=== PATIENT | female | born 1970 | race Caucasian/White ===

== ENCOUNTER 2017-04-21 12:54 | Outpatient (CLI) | payer BC ==
[2017-04-21 14:42] LABS: Hematocrit 46.7 % (36.0-47.0); Red Blood Cell (RBC) Count 4.61 mill/uL (4.20-5.40); White Blood Cell (WBC) Count 6.4 thou/uL (4.8-10.8)
[2017-04-21 15:16] LABS: Anion Gap 13 mmol/L (10-20); BUN (Urea Nitrogen) 10 mg/dL (7.0-18.7); Calc. Creatinine Clearance 0 mL/min (70-130); Calcium 9.6 mg/dL (7.8-10.44); Carbon Dioxide 24 mmol/L (22-29); Chloride 108 mmol/L (98-107); Estimated GFR-MDRD Greater than 90
--- NOTE | 2017-05-06 13:30 | EKG ---
Test Reason : Blood Pressure : / mmHG Vent. Rate : 067 BPM Atrial Rate : 067 BPM P-R Int : 152 ms QRS Dur : 080 ms QT Int : 434 ms P-R-T Axes : 060 062 049 degrees QTc Int : 458 ms Normal sinus rhythm Cannot rule out Anterior infarct , age undetermined Abnormal ECG No previous ECGs available Confirmed by LALITO MILLAN MD ([id number] on 05/06/2017 1:30:15 PM Referred By: JOSELINE Confirmed By:LALITO MILLAN MD
== END 2017-04-21 12:55 | disposition home or self-care (01) ==
LOC: LABBT 12:54
PROVIDERS: ATTEND Neurological Surgery
DX: Z01.818 Encounter for other preprocedural examination (principal); M54.16 Radiculopathy, lumbar region
CPT/HCPCS: 80048; 85027; 93005; 93010

== ENCOUNTER 2017-04-27 07:00 | Outpatient (CLI) | payer BC | END 2017-04-27 07:01 | disposition home or self-care (01) | LOC: BICMRI 07:00 | PROVIDERS: ATTEND Neurological Surgery | DX: M51.17 Intervertebral disc disorders with radiculopathy, lumbosacral region (principal) | CPT/HCPCS: 72148 ==

== ENCOUNTER 2017-05-04 05:40 | Observation (INO) | payer BC ==
[2017-04-21 13:20] VITALS: BMI 32.3
[2017-05-04] MEDS ORDERED: Midazolam HCl 2 mg/2 ml Vial ONE ×2 (06:15→09:12)
[2017-05-04] MEDS ORDERED: Fentanyl 100 MCG/2 ML VIAL ONE ×2 (06:15→09:28)
[2017-05-04] MEDS ORDERED: Fentanyl 250 MCG/5 ML VIAL ONE (06:15)
[2017-05-04] MEDS ORDERED: Sodium Chloride 0.9% 10 ML ONE (06:30)
[2017-05-04] MEDS ORDERED: CEFAZOLIN/Water 2 GM/20 ML SYRINGE ONE (06:49)
[2017-05-04] MEDS ORDERED: HYDROmorphone 2 MG/ML VIAL SLOW IVP PRN (07:21)
[2017-05-04] MEDS ORDERED: Promethazine HCl 25 MG/ML VIAL SLOW IVP PRN (07:21)
[2017-05-04] MEDS ORDERED: Meperidine HCl/PF 25 MG/ML VIAL SLOW IVP PRN (07:21)
[2017-05-04] MEDS ORDERED: HYDROmorphone 0.5 MG/0.5 ML SYRINGE ONE ×2 (09:10→09:12)
[2017-05-04] MEDS ORDERED: Ondansetron HCl/PF 4 MG/2 ML Vial IVP PRN (09:19)
[2017-05-04] MEDS ORDERED: Promethazine HCl 25 MG/ML VIAL IM PRN (09:19)
[2017-05-04] MEDS ORDERED: diphenhydrAMINE 25 MG CAP PO PRN (09:19)
[2017-05-04] MEDS ORDERED: Zolpidem Tartrate 5 MG TAB PO PRN (09:19)
[2017-05-04] MEDS ORDERED: Naloxone HCl 0.4 mg/ml Vial IV PRN (09:19)
[2017-05-04] MEDS ORDERED: HYDROmorphone 10 mg/100 ml CADD IVPB PRN (09:19)
[2017-05-04] MEDS ORDERED: diphenhydrAMINE 50 MG/ML VIAL IVP PRN (09:19)
[2017-05-04] MEDS ORDERED: diphenhydrAMINE 50 MG/ML VIAL IM PRN (09:19)
[2017-05-04] MEDS ORDERED: Communication Order-Pharmacy FS SCH (09:30)
[2017-05-04] MEDS ORDERED: Ketorolac Tromethamine 30 MG/ML VIAL ONE (09:55)
--- NOTE | 2017-05-04 12:15 | OP ---
DATE OF PROCEDURE: 05/04/2017 SURGEON: Braeden Jauregui M.D. SKULL CHOPPER: Aide Becerra PROCEDURES: Left L5-S1 laminectomy, facetectomy, and foraminotomy, interbody arthrodesis, intraverte bral biomechanical device, local morselized autograft, demineralized bone matrix, posterior lateral a rthrodesis, and pedicle screw instrumentation, L5-S1. PROCEDURE IN DETAIL: The patient was brought into the operating room, intubated. She was rolled in the prone position on gel-filled chest rolls. Incision made exposing L5 and S1 and our level was con firmed by x-ray. We performed a left L5-S1 laminectomy, facetectomy, and foraminotomy incising inter vertebral disk and completely decompressed the left L5 and left S1 nerve roots. The disc itself was completely debrided and the bony endplates decorticated for the purpose of arthrodesis. An appropria tely sized intravertebral biomechanical PEEK device was brought into the field, filled with demineral ized bone matrix and local morselized autograft, and tapped into place securely at L5-S1. Next, pedi fred screws were placed at left L5 and left S1 using lateral fluoroscopic guidance and the positioning was confirmed with rotational x-ray. A ok was secured between the screws, connected by nuts which were final tightened. The wound was then extensively irrigated, immaculate hemostasis was secured. A combination of demineralized bone matrix and local morselized autograft was laid over the laminar p osterolateral surfaces on the right for the purpose of arthrodesis. Vancomycin powder was applied an d the wound was then closed in anatomic layers.
[2017-05-04] MEDS ORDERED: Dexamethasone 20 MG/5 ML VIAL ONE (13:37)
[2017-05-04] MEDS ORDERED: Lidocaine 1% PF 5 ML VIAL ONE (13:37)
[2017-05-04] MEDS ORDERED: PROPOFOL 200 MG/20 ML VIAL ONE (13:37)
[2017-05-04] MEDS ORDERED: Ondansetron HCl/PF 4 MG/2 ML Vial ONE (13:37)
[2017-05-04] MEDS ORDERED: Glycopyrrolate 0.2 MG/ML 5 ML SYRINGE ONE (13:37)
[2017-05-04] MEDS ORDERED: ePHEDrine/0.9% NaCl/PF SYRINGE 50 mg/10 ml ONE (13:37)
--- NOTE | 2017-05-04 13:37 | PDOC.PN ---
- Subjective Encounter Start Date: 05/04/17 Encounter Start Time: 13:00 Subjective: c/o pain at operated site -: no chest pain or palp or sob - Objective MAR Reviewed: Yes Vital Signs & Weight: Vital Signs (12 hours) Temp Pulse Resp BP Pulse Ox 05/04/17 11:20 97.5 F L 92 18 120/68 94 L 05/04/17 11:10 97.5 F L 92 18 05/04/17 09:20 97.5 F L 79 16 124/91 H 94 L Weight Weight 177 lb I&O: 05/03/17 05/04/17 05/05/17 06:59 06:59 06:59 Intake Total 0 Balance 0 Phys Exam - Physical Examination HEENT: PERRLA, moist MMs Neck: no JVD, supple Respiratory: no wheezing, no rales Cardiovascular: RRR, no significant murmur Gastrointestinal: soft, non-tender, positive bowel sounds Musculoskeletal: no edema, pulses present Neurological: non-focal, moves all 4 limbs Psychiatric: A&O x 3 Dx/Plan (1) S/P lumbar spine operation Code(s): Z98.890 - OTHER SPECIFIED POSTPROCEDURAL STATES Status: Acute Comment: 05/04/2017 (2) HTN (hypertension) Code(s): I10 - ESSENTIAL (PRIMARY) HYPERTENSION Status: Chronic Qualifiers: Hypertension type: essential hypertension Qualified Code(s): I10 - Essential (primary) hypertension (3) H/O systemic lupus erythematosus (SLE) Code(s): Z87.39 - PERSONAL HISTORY OF DISEASES OF THE MS SYS AND CONN TISS Status: Chronic (4) Bipolar 1 disorder Code(s): F31.9 - BIPOLAR DISORDER, UNSPECIFIED Status: Chronic - 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 Review of Systems - Medications/Allergies Allergies/Adverse Reactions: Allergies Allergy/AdvReac Type Severity Reaction Status Date / Time shellfish derived Allergy Severe HIVES, Verified 04/21/17 13:11 THROAT SWELLING duloxetine [From Cymbalta] Allergy Intermediate HALLUCINATI Verified 04/21/17 13 :11 ONS phenytoin [From Dilantin] Allergy Intermediate Verified 04/21/17 13:11 Medications: Current Medications Diphenhydramine HCl (Benadryl) 25 mg IVP Q3H PRN PRN Reason: Itching Diphenhydramine HCl (Benadryl) 25 mg PO Q3H PRN PRN Reason: Itching Diphenhydramine HCl (Benadryl) 25 mg IM Q3H PRN PRN Reason: Itching Hydromorphone HCl (Dilaudid Cadd) 0 mg IVPB INF PRN PRN Reason: Pain Ketorolac Tromethamine (Toradol) 30 mg IVP 0400,1000,1600,2200 [facility] Stop: 05/06/17 16:01 Miscellaneous Information (Communication Order-Pharmacy) 1 each FS [facility] Stop: 05/04/17 23:00 Naloxone HCl (Narcan) 0.2 mg IV Q5MIN PRN PRN Reason: Opiate Reversal Ondansetron HCl (Zofran) 4 mg IVP Q6H PRN PRN Reason: Nausea/Vomiting Promethazine HCl (Phenergan) 6.25 mg IM Q4H PRN PRN Reason: Nausea/Vomiting
[2017-05-04] MEDS ORDERED: ALPRAZolam 1 MG TAB PO PRN (14:57)
[2017-05-04] MEDS: CEFAZOLIN/Water 2 GM/20 ML SYRINGE SLOW IVP SCH ×2 (16:23→23:45)
[2017-05-04] MEDS: Ketorolac Tromethamine 30 MG/ML VIAL IVP SCH ×2 (16:30→21:40)
[2017-05-04] MEDS: Gabapentin 400 MG CAP PO SCH ×2 (17:38→21:42)
[2017-05-04] MEDS: Hydroxychloroquine Sulfate 200 MG TAB PO SCH (21:42)
[2017-05-05] MEDS: Ketorolac Tromethamine 30 MG/ML VIAL IVP SCH (03:39)
[2017-05-05 08:12] LABS: #Eosinphils 0.1 thou/uL (0.0-0.7); #Lymphocytes 3.3 thou/uL (1.20-3.40); #Neutrophils 4.5 thou/uL (1.40-6.50); %Basophils 0.3 % (0.0-1.0); %Eosinophils 0.8 % (0.0-10.0); %Lymphocytes 36.6 % (21.0-51.0); %Monocytes 11.5 % (0.0-10.0); %Neutrophils 50.8 % (42.0-75.0); Hemoglobin 13.2 g/dL (12.0-16.0); Mean Corpuscular HGB CONC 33.2 g/dL (32.0-36.0); Mean Corpuscular Hemoglobin 33.7 pg (27.0-31.0); Mean Platelet Volume 8.1 fL (7.4-10.4); Platelet Count 153 thou/uL (130-400); RBC Distribution Width 11.7 % (11.5-14.5); Red Blood Cell (RBC) Count 3.92 mill/uL (4.20-5.40); White Blood Cell (WBC) Count 8.9 thou/uL (4.8-10.8)
[2017-05-05] MEDS ORDERED: Gabapentin 400 MG CAP PO SCH (09:00)
[2017-05-05] MEDS ORDERED: Aripiprazole 10 MG TAB PO SCH (09:00)
[2017-05-05 09:04] VITALS: BP 124/79; TEMP 98
[2017-05-05] MEDS: Hydroxychloroquine Sulfate 200 MG TAB PO SCH (10:00)
--- NOTE | 2017-05-05 11:23 | PDOC.PN ---
- Subjective Encounter Start Date: 05/05/17 Encounter Start Time: 08:00 Subjective: is amb in room, feels good - Objective MAR Reviewed: Yes Vital Signs & Weight: Vital Signs (12 hours) Temp Pulse Resp BP Pulse Ox 05/05/17 09:03 98 F 78 16 124/79 95 05/05/17 04:00 97.6 F 95 16 99/64 92 L 05/05/17 00:00 98.0 F 67 19 108/72 93 L Weight Weight 177 lb I&O: 05/04/17 05/05/17 05/06/17 06:59 06:59 06:59 Intake Total 400 Output Total 0 Balance 400 Result Diagrams: 05/05/17 08:02 Phys Exam - Physical Examination HEENT: PERRLA, moist MMs Neck: no JVD, supple Respiratory: no wheezing, no rales Cardiovascular: RRR, no significant murmur Gastrointestinal: soft, non-tender, positive bowel sounds Musculoskeletal: no edema, pulses present Neurological: non-focal, moves all 4 limbs Psychiatric: A&O x 3 Dx/Plan (1) S/P lumbar spine operation Code(s): Z98.890 - OTHER SPECIFIED POSTPROCEDURAL STATES Status: Acute Comment: 05/04/2017 (2) HTN (hypertension) Code(s): I10 - ESSENTIAL (PRIMARY) HYPERTENSION Status: Chronic Qualifiers: Hypertension type: essential hypertension Qualified Code(s): I10 - Essential (primary) hypertension (3) H/O systemic lupus erythematosus (SLE) Code(s): Z87.39 - PERSONAL HISTORY OF DISEASES OF THE MS SYS AND CONN TISS Status: Chronic (4) Bipolar 1 disorder Code(s): F31.9 - BIPOLAR DISORDER, UNSPECIFIED Status: Chronic - Plan dc plan per nsx advice -: 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 Review of Systems - Medications/Allergies Allergies/Adverse Reactions: Allergies Allergy/AdvReac Type Severity Reaction Status Date / Time shellfish derived Allergy Severe HIVES, Verified 04/21/17 13:11 THROAT SWELLING duloxetine [From Cymbalta] Allergy Intermediate HALLUCINATI Verified 04/21/17 13 :11 ONS phenytoin [From Dilantin] Allergy Intermediate Verified 04/21/17 13:11 Medications: Current Medications Alprazolam (Xanax) 1 mg PO TIDPRN PRN PRN Reason: Anxiety Aripiprazole (Abilify) 10 mg PO DAILY [facility] Last Admin: 05/05/17 10:02 Dose: 10 mg Diphenhydramine HCl (Benadryl) 25 mg IVP Q3H PRN PRN Reason: Itching Diphenhydramine HCl (Benadryl) 25 mg PO Q3H PRN PRN Reason: Itching Diphenhydramine HCl (Benadryl) 25 mg IM Q3H PRN PRN Reason: Itching Gabapentin (Neurontin) 800 mg PO TID [facility] Last Admin: 05/05/17 10:00 Dose: 800 mg Hydroxychloroquine Sulfate (Plaquenil) 200 mg PO BID [facility] Last Admin: 05/05/17 10:00 Dose: 200 mg Ketorolac Tromethamine (Toradol) 30 mg IVP 0400,1000,1600,2200 [facility] Stop: 05/06/17 16:01 Last Admin: 05/05/17 03:39 Dose: 30 mg Naloxone HCl (Narcan) 0.2 mg IV Q5MIN PRN PRN Reason: Opiate Reversal Ondansetron HCl (Zofran) 4 mg IVP Q6H PRN PRN Reason: Nausea/Vomiting Promethazine HCl (Phenergan) 6.25 mg IM Q4H PRN PRN Reason: Nausea/Vomiting
--- NOTE | 2017-05-05 17:04 | DIS ---
DATE OF ADMISSION: 05/04/2017 DATE OF DISCHARGE: 05/05/2017 DISCHARGE DISPOSITION: To home. PRIMARY DISCHARGE DIAGNOSES: Patient is status post left L5-S1 laminectomy, facetectomy, and foraminotomy done by Dr. Jauregui on 05/04/2017. SECONDARY DISCHARGE DIAGNOSES: History of lupus, hypertension, bipolar disorder. PROCEDURES DONE DURING HOSPITALIZATION: The patient has had above-mentioned procedure on 05/04/2017 on her lumbar spine by Dr. Jauregiu. H&H 13 and 39, platelet count 153. DISCHARGE MEDICATIONS: The patient to continue Humira after 2 weeks, alprazolam p.r.n., aripiprazole 10 mg p.o. daily, baclofen 10 mg p.o. 3 times daily p.r.n., Lasix 20 mg daily, gabapentin 800 mg p.o. 4 times daily, Dilaudid 4 mg p.o. q.8 hourly, Plaquenil 200 mg p.o. twice daily, methotrexate as before , sulfasalazine 500 mg p.o. twice daily, verapamil 80 mg p.o. 3 times daily, and zolpidem 10 mg p.o. at bedtime p.r.n. for insomnia. ALLERGIES: SHELLFISH, DULOXETINE, and PHENYTOIN. DISCHARGE PLAN: Patient to follow up with Dr. Jauregui as advised. BRIEF COURSE DURING HOSPITALIZATION: The patient was electively admitted by Dr. Jauregui for L5-S1 left laminectomy, facetectomy, and foraminotomy. This was done on the . Postop, the patient was placed on Dilaudid drip in view of her taking Dilaudid at home and increased pain postop. The Dilaudid REVENUE COORDINATOR was managed by Anesthesia. This morning, the patient's pain is well controlled and is wanting to go home. She is ambulating well and eating well. She will be shortly discharged per Neurosurgery advice. She needs follow up with her primary care physician in [address] Jauregui as advised. Please note the patient is on multiple psychotropic medications and pain medications and these are managed by her primary care physician/pain specialist and needs to follow up with them in 2 weeks. Please see a face to face documentation on [facility] for the day of discharge. [facility]
== END 2017-05-05 08:50 | disposition home or self-care (01) ==
LOC: SDC 05:40 → SURG A 11:21
PROVIDERS: ADMIT Neurological Surgery; ATTEND Neurological Surgery
PROC: 0SG30AJ Fusion of Lumbosacral Joint with Interbody Fusion Device, Posterior Approach, Anterior Column, Open Approach (ICD-10-PCS; principal; 2017-05-04)
PROC: 0SG30J1 Fusion of Lumbosacral Joint with Synthetic Substitute, Posterior Approach, Posterior Column, Open Approach (ICD-10-PCS; 2017-05-04)
PROC: 0ST40ZZ Resection of Lumbosacral Disc, Open Approach (ICD-10-PCS; 2017-05-04)
DX: M51.16 Intervertebral disc disorders with radiculopathy, lumbar region (principal); M32.9 Systemic lupus erythematosus, unspecified; G40.909 Epilepsy, unspecified, not intractable, without status epilepticus; I10 Essential (primary) hypertension; Z91.013 Allergy to seafood; Z88.8 Allergy status to other drugs, medicaments and biological substances; F31.9 Bipolar disorder, unspecified; Z90.710 Acquired absence of both cervix and uterus; Z90.49 Acquired absence of other specified parts of digestive tract
CPT/HCPCS: 36415; 76001; 85025; 96374; 96375; 96376; A4216; C1713; C1768; G0378; J1100; J1170; J1885; J2001; J2250; J2405; J2550; J2704; J3010; J3370; J3490

== ENCOUNTER 2017-05-18 14:44 | Outpatient (CLI) | payer BC ==
--- NOTE | 2017-05-18 15:50 | RAD ---
TWO VIEWS LUMBAR SPINE 05/18/17 HISTORY: Lumbar radiculopathy, M54.16. Radiographs lumbar spine demonstrate left sided L5-S1 radiopaque hardware in place. The left L5 pedic le screw appears to be somewhat laterally positioned to the expected course of the left L5 pedicle. T he S1 screws appears to be in good position. IMPRESSION: Possible lateral displacement of the L5 pedicle screws. Correlate with CT of the lumbar spine for exa ct positioning. POS: LEANNE
== END 2017-05-18 14:45 | disposition home or self-care (01) ==
LOC: TBSIIMAG 14:44
PROVIDERS: ATTEND Neurological Surgery
DX: M54.16 Radiculopathy, lumbar region (principal)
CPT/HCPCS: 72100

== ENCOUNTER 2017-07-11 13:19 | Outpatient (CLI) | payer BC ==
--- NOTE | 2017-07-11 13:43 | RAD ---
TWO VIEWS OF THE LUMBAR SPINE: INDICATIONS: Postoperative lumbar spine. History of back surgery in April 2017. FINDINGS: There is posterolateral spinal instrumentation on the left, at L5-S1. This is stable in position whe n compared to the prior, dated 05/18/2017. Mild multilevel disk degenerative disease is similar. Sp inal alignment is well maintained. There are surgical clips within the right upper quadrant of the a bdomen. IMPRESSION: Postoperative changes of the lumbar spine, stable, to the most recent comparison examination, dated 0 05/18/2017. POS: LEANNE
== END 2017-07-11 13:20 | disposition home or self-care (01) ==
LOC: TBSIIMAG 13:19
PROVIDERS: ATTEND Neurological Surgery
DX: M51.36 Other intervertebral disc degeneration, lumbar region (principal); Z98.890 Other specified postprocedural states
CPT/HCPCS: 72100

== ENCOUNTER 2017-10-24 10:08 | Outpatient (CLI) | payer BC ==
--- NOTE | 2017-10-24 11:57 | RAD ---
TWO VIEWS LUMBAR SPINE: Indication: Low back pain. Comparison: 07-11-17 FINDINGS: The left L5 and S1 pedicular screws are unchanged in position from the comparison examination of . Spinal alignment is unchanged. Multilevel spondylosis is similar appearing. IMPRESSION: Stable post-operative lumbar spine. POS: LEANNE
== END 2017-10-24 10:09 | disposition home or self-care (01) ==
LOC: TBSIIMAG 10:08
PROVIDERS: ATTEND Neurological Surgery
DX: M51.36 Other intervertebral disc degeneration, lumbar region (principal); Z98.1 Arthrodesis status
CPT/HCPCS: 72100